=== PATIENT | female | born 1960 | race Caucasian/White ===

== ENCOUNTER 2017-09-27 17:25 | Inpatient (IN) | payer OTHER ==
[~2017-09-27] VITALS: Ht 165.1 cm; Wt 95.7 kg
--- NOTE | ~2017-09-27 | EKG ---
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
--- NOTE | ~2017-09-27 | 2DMMODE ---
[facility] [address] [facility] [place] [address] 2 D/M-MODE ECHOCARDIOGRAM Name: SPEEDY DENG Room #: 455-P ADM IN M.R.#: [id number] Admission: 09/27/17 Attend Phys: Jared Whitaker, Discharge: Date of : 60 Date of Service: 09/29/17 1333 Report #: [id number] THIS REPORT FOR: //name// APPROVED REPORT Study performed: 09/29/2017 12:34:42 EXAM: Comprehensive 2D, Doppler, and color-flow Echocardiogram Patient Location: Echo lab Room #: [facility] Status: routine BSA: 2.02 HR: 89 bpm BP: 140/88 mmHg Rhythm: nsr, pvcs Other Information Study Quality: Good Indications Hypertension, tachycardia. Hx: HTN, HLP, DM, PVCs 2D Dimensions RVDd: 38.65 mm LVEF(%): 52.21 (>50%) IVSd: 11.34 (7-11mm) LVOT Diam: 21.09 (18-24mm) LVDd: 45.88 mm PWd: 10.91 (7-11mm) Ascending Ao: 33.91 (22-36mm) LVDs: 33.64 (25-40mm) Aortic Root: 35.54 mm Jones's LVEF: 52.21 % Volumes Left Atrial Volume (Systole) Single Plane 4CH: 45.77 mL Single Plane 2CH: 68.82 mL LA ESV Index: 31.00 mL/m2 Aortic Valve AoV Peak Kvng.: 1.60 m/s AO Peak Gr.: 10.22 mmHg LVOT Max P.25 mmHg LVOT Max V: 1.25 m/s MISTY Vmax: 2.73 cm2 Mitral Valve E/A Ratio: 0.9 MV Decel. Time: 175.51 ms [facility] [place] [address] 2 D/M-MODE ECHOCARDIOGRAM Name: SPEEDY DENG Room #: 455-P [facility] IN M.R.#: [id number] Admission: 09/27/17 Attend Phys: Jared Whitaker, Discharge: Date of : 60 Date of Service: 09/29/17 1333 Report #: [id number] MV E Max Kvng.: 0.94 m/s MV A Kvng.: 1.10 m/s MV PHT: 50.90 ms IVRT: 72.66 ms Pulmonary Valve PV Peak Kvng.: 1.13 m/s PV Peak Gr.: 5.09 mmHg Pulmonary Vein P Vein S: 0.70 m/s P Vein D: 0.45 m/s P Vein S/D Ratio: 1.56 Tricuspid Valve TR Peak Kvng.: 2.80 m/s RAP Estimate: 5.00 mmHg TR Peak Gr.: 31.34 mmHg PA Pressure: 36.00 mmHg Left Ventricle The left ventricle is normal size. There is normal LV segmental wall motion. Borderline concentric left ventricular hypertrophy. Left ventricular systolic function is normal. LVEF is 60-65%. Mild diastolic dysfunction is present (impaired relaxation pattern). Right Ventricle The right ventricle is normal size. The right ventricular systolic function is normal. Atria The left atrium size is normal. The right atrium size is normal. Aortic Valve The aortic valve is normal in structure. No aortic regurgitation is present. There is no aortic valvular stenosis. Mitral Valve The mitral valve is normal in structure. Trace to mild mitral regurgitation. Tricuspid Valve The tricuspid valve is normal in structure. Mild tricuspid regurgitation. Estimated PAP is 35-40mmHg. Pulmonic Valve [address] [address] 2 D/M-MODE ECHOCARDIOGRAM Name: ISHSPEEDY SHAYY Room #: 455-P [facility] IN M.R.#: [id number] Admission: 09/27/17 Attend Phys: Jared Whitaker, Discharge: Date of : 60 Date of Service: 09/29/17 1333 Report #: [id number] The pulmonary valve is normal in structure. Trace pulmonic regurgitation. Great Vessels The aortic root is normal in size. The ascending aorta is normal in size. IVC is normal in size and collapses >50% with inspiration. Pericardium There is no pericardial effusion. <Conclusion> The left ventricle is normal size. Left ventricular systolic function is normal. Mild diastolic dysfunction is present (impaired relaxation pattern). The right ventricle is normal size. The left atrium size is normal. The aortic valve is normal in structure. Trace to mild mitral regurgitation. Mild tricuspid regurgitation. Estimated PAP is 35-40mmHg. <ELECTRONICALLY SIGNED> By: Jorge Segura MD 09/29/17 1333 1333 1333 Jorge Segura MD /INF
--- NOTE | ~2017-09-27 | EKG ---
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 : 1960 Requested By: Jared Whitaker Order Number: [id number] MD: Bernardo Cobos Measurements Intervals [place] Rate: 118 P: 62 UT: 143 QRS: 25 QRSD: 86 T: 29 QT: 314 QTc: 441 Interpretive Statements Sinus tachycardia Paired ventricular premature complexes Left atrial enlargement Compared to ECG 09/27/2017 17:43:57 Ventricular premature complex(es) now present Electronically Signed On 09-28-2017 21:30:43 CDT by Bernardo Cobos [email or web address] <ELECTRONICALLY SIGNED> By: Bernardo Cobos MD 09/28/170 1748 1748 Bernardo Cobos MD /ADELFO
--- NOTE | ~2017-09-27 | HC ---
[facility] [place] [address] CONSULTATION Name: SPEEDY DENG Room #: 455-P [facility] IN M.R.#: [id number] Admission: 09/27/17 Attend Phys: Jared Whitaker DO Discharge: Date of : 60 Report #: [id number] THIS REPORT FOR: //name// CC: Cristóbal Whitaker DATE OF SERVICE: 09/29/2017 INDICATION: Tachycardia. HISTORY OF PRESENT ILLNESS: This is a 57-year-old female with a history of diabetes mellitus, hypertension, presenting with a cough, fever and dyspnea. The patient was admitted for bronchitis and started on antibiotics. She was noted to have tachycardia, with heart rates in the 120s beats per minute range. The patient had mild chest discomfort, especially with coughing. There is no history of nausea, fever or diarrhea. The patient reports having a diagnosis of PVCs and started on a beta chirag. She reports having a stress test last year that was unremarkable. PAST MEDICAL HISTORY: Diabetes mellitus, hypertension, hypercholesterolemia, and PVCs. ALLERGIES: To LISINOPRIL. MEDICATIONS: Include metoprolol 50 mg daily, amlodipine 5 mg, omeprazole, metformin, losartan 50 mg, Lipitor 10 mg, and glimepiride 1 mg. SOCIAL HISTORY: Negative for tobacco use. FAMILY HISTORY: Negative for premature CAD. REVIEW OF SYSTEMS: A full 10-point review of systems performed. Only the pertinent positives and negatives are described in the HPI. PHYSICAL EXAMINATION: VITAL SIGNS: Blood pressure is 140/80, heart rate is 90 beats per minute. GENERAL APPEARANCE: This is a mildly overweight female, in no acute respiratory distress. HEAD AND EYES: Normocephalic. Sclerae are anicteric. ENT: Oral mucosa moist. NECK: Supple. LUNGS: Clear to auscultation. CARDIAC: Regular rate and rhythm, S1, S2 positive. ABDOMEN: Soft. EXTREMITIES: No cyanosis, no edema. NEUROLOGIC: Alert and oriented x3. [facility] [address] [place] [address] CONSULTATION Name: SPEEDY DENG Room #: 455-[facility] IN .R.#: [id number] Admission: 09/27/17 Attend Phys: Jared Whitaker DO Discharge: Date of : 60 Report #: [id number] ECG reveals sinus tachycardia at 119 beats per minute, PVCs. LABORATORY VALUES: Initial sodium is 133, creatinine is 0.7. White count 6.8, hemoglobin is 15.1. ASSESSMENT AND PLAN: 1. Bronchitis, developed symptoms of cough, dyspnea and fevers. Improved with IV antibiotics and fluids. 2. Tachycardia, representing sinus tachycardia with a short burst of paroxysmal atrial tachycardia self-limiting. Her heart rate has increased due to hypoxia/infectious process. Now that she feels symptomatically improved, heart rate is under better control, less than 100 beats per minute. Plan is to obtain an echo and continue with the higher dose metoprolol. 3. Hypertension, continue medications. 4. Hypercholesterolemia, continue statin medication. 5. Diabetes mellitus, continue with meds, check fingersticks. <ELECTRONICALLY SIGNED> By: Jorge Segura MD 09/30/17 0835 0908 0958 Jorge Segura MD /nt
[2017-09-27 17:37] VITALS: BP 179/105
[2017-09-27 18:12] LABS: CALCIUM 9.1 mg/dL (8.5-10.1); CREATININE 0.7 mg/dL (0.6-1.0); POTASSIUM 4.5 mmol/L (3.5-5.1)
[2017-09-27 18:23] LABS: BASOPHILS 0.3 % (0.0-2.0); EOSINOPHILS 1.2 % (0.0-3.0); HEMATOCRIT 43.6 % (37.0-47.0); HEMOGLOBIN 15.1 gm/dL (12.0-15.0); LYMPHOCYTES 42.4 % (24.0-44.0); MCH 31.8 pg (26.0-34.0); MCHC 34.6 g/dL (28.0-37.0); MCV 91.8 fL (80.0-100.0); MONOCYTES 11.2 % (1.0-8.0); PLATELET COUNT 169 thou/uL (150-400); POLYS 44.9 % (36.0-66.0); RBC 4.75 mil/uL (4.20-5.00); RDW 12.4 % (10.5-14.5); WBC 6.8 thou/uL (4.0-11.0)
[2017-09-27] MEDS ORDERED: METFORMIN HCL1000 M1 PO (18:43)
[2017-09-27] MEDS ORDERED: METOPROLOL SUCC50 MG PO (18:43)
[2017-09-27] MEDS ORDERED: OMEPRAZOLE 20 M20 M1 PO (18:43)
[2017-09-27] MEDS ORDERED: NORVASC5 MG PO (18:43)
[2017-09-27] MEDS ORDERED: COZAAR 50 MG TA50 M2 PO (18:44)
[2017-09-27] MEDS ORDERED: LIPITOR10 MG PO (18:44)
[2017-09-27] MEDS ORDERED: GLIMEPIRIDE1 MG PO (18:44)
[2017-09-27 19:56] LABS: AMP/METHAMP Negative (Negative); BARBITURATES Negative (Negative); BENZODIAZEPINES Negative (Negative); COCAINE Negative (Negative); METHADONE Negative (Negative); OPIATES Negative (Negative); PCP Negative (Negative)
[2017-09-27 22:18] VITALS: BP 148/75
[2017-09-28 04:13] VITALS: BP 128/71
[2017-09-28 06:45] LABS: ANION GAP 14 mmol/L (7-16); BUN 13 mg/dL (7-18); CALCIUM 8.9 mg/dL (8.5-10.1); CHLORIDE 105 mmol/L (98-107); CO2 22 mmol/L (21-32); CREATININE 0.7 mg/dL (0.6-1.0); GLUCOSE 294 mg/dL (74-106); POTASSIUM 3.9 mmol/L (3.5-5.1); SODIUM 141 mmol/L (136-145); TROPONIN-I < 0.04 ng/mL (<0.06)
[2017-09-28 08:00] VITALS: BP 154/91
[2017-09-28 16:00] VITALS: BP 151/85
[2017-09-28 20:24] VITALS: BP 152/92
[2017-09-29 03:35] VITALS: BP 141/75
[2017-09-29 06:35] LABS: ABSOLUTE NEUTROPHILS 7.7 thou/uL (1.4-8.2); BASOPHILS 0.1 % (0.0-2.0); HEMATOCRIT 38.3 % (37.0-47.0); LYMPHOCYTES 13.5 % (24.0-44.0); MCH 31.2 pg (26.0-34.0); MCV 91.9 fL (80.0-100.0); MONOCYTES 4.2 % (1.0-8.0); PLATELET COUNT 189 thou/uL (150-400); POLYS 82.2 % (36.0-66.0); RBC 4.17 mil/uL (4.20-5.00); RDW 12.5 % (10.5-14.5); WBC 9.3 thou/uL (4.0-11.0)
[2017-09-29 06:49] LABS: CALCIUM 8.9 mg/dL (8.5-10.1); CREATININE 0.6 mg/dL (0.6-1.0); POTASSIUM 3.8 mmol/L (3.5-5.1)
[2017-09-29 08:38] VITALS: BP 140/88
[2017-09-29 17:02] VITALS: BP 150/72
[2017-09-29 19:47] VITALS: BP 154/77
[2017-09-30 05:02] VITALS: BP 155/91
[2017-09-30 06:02] LABS: ABSOLUTE NEUTROPHILS 7.4 thou/uL (1.4-8.2); BASOPHILS 0.1 % (0.0-2.0); HEMATOCRIT 40.5 % (37.0-47.0); HEMOGLOBIN 13.6 gm/dL (12.0-15.0); LYMPHOCYTES 18.4 % (24.0-44.0); MCH 31.1 pg (26.0-34.0); MCHC 33.6 g/dL (28.0-37.0); MCV 92.8 fL (80.0-100.0); MONOCYTES 4.3 % (1.0-8.0); PLATELET COUNT 209 thou/uL (150-400); POLYS 77.2 % (36.0-66.0); RBC 4.37 mil/uL (4.20-5.00); RDW 12.8 % (10.5-14.5); WBC 9.6 thou/uL (4.0-11.0)
[2017-09-30 06:13] LABS: CALCIUM 9.2 mg/dL (8.5-10.1); CREATININE 0.7 mg/dL (0.6-1.0); POTASSIUM 3.9 mmol/L (3.5-5.1)
[2017-09-30 08:13] VITALS: BP 148/86
[2017-09-30 16:34] VITALS: BP 157/84
[2017-09-30 19:38] VITALS: BP 165/94
[2017-10-01 04:30] VITALS: BP 136/75
[2017-10-01 06:13] LABS: ABSOLUTE NEUTROPHILS 6.5 thou/uL (1.4-8.2); BASOPHILS 0.2 % (0.0-2.0); HEMATOCRIT 41.9 % (37.0-47.0); HEMOGLOBIN 14.1 gm/dL (12.0-15.0); MCHC 33.6 g/dL (28.0-37.0); MCV 92.1 fL (80.0-100.0); MONOCYTES 7.1 % (1.0-8.0); PLATELET COUNT 226 thou/uL (150-400); POLYS 67.7 % (36.0-66.0); RBC 4.55 mil/uL (4.20-5.00); RDW 12.5 % (10.5-14.5); WBC 9.6 thou/uL (4.0-11.0)
[2017-10-01 06:33] LABS: CALCIUM 9.4 mg/dL (8.5-10.1); CREATININE 0.8 mg/dL (0.6-1.0); POTASSIUM 3.8 mmol/L (3.5-5.1)
[2017-10-01 08:21] VITALS: BP 143/82
[2017-10-01] MEDS ORDERED: MEDROL DOSPAK21 TA1 PO (09:27)
[2017-10-01] MEDS ORDERED: LEVAQUIN 750 M750 MG PO (09:27)
[2017-10-01] MEDS ORDERED: XOPENEX HFA15 GM INH (09:29)
[2017-10-01 12:13] VITALS: BP 143/82
[2017-10-01 22:12] LABS: ADENOVIRUS Negative (Negative); INFLUENZA A Negative (Negative); INFLUENZA B Negative (Negative); METAPNEUMOVIRUS Positive (Negative); PARAINFLUENZA 1 Negative (Negative); PARAINFLUENZA 2 Negative (Negative); PARAINFLUENZA 3 Negative (Negative); RHINOVIRUS Negative (Negative); RSV A Negative (Negative); RSV B Negative (Negative)
== END 2017-10-01 14:00 | disposition home or self-care (01) | DRG 872 ==
LOC: ER 17:25 → 4W 20:52 → EROBS 20:52 → 4W 21:47 → ENTRNSPT 10-01 13:32 → EDTRNSPTSTS 10-01 13:45 → 4W 10-01 14:00
PROVIDERS: Family Medicine; Nurse Practitioner Family
DX: A41.9 Sepsis, unspecified organism (principal); J40 Bronchitis, not specified as acute or chronic; J06.9 Acute upper respiratory infection, unspecified; E78.00 Pure hypercholesterolemia, unspecified; I10 Essential (primary) hypertension; E78.5 Hyperlipidemia, unspecified; E11.9 Type 2 diabetes mellitus without complications; Z79.84 Long term (current) use of oral hypoglycemic drugs; Z79.899 Other long term (current) drug therapy; Z88.8 Allergy status to other drugs, medicaments and biological substances
CPT/HCPCS: 10045